=== PATIENT | female | born 1970 | race Caucasian/White ===

== ENCOUNTER 2018-06-12 21:01 | Emergency (ER) | payer MEDICAID, OTHER ==
[~2018-06-12] VITALS: Ht 152.4 cm; Wt 68.9 kg
[~2018-06-12 21:01] MED LIST: BACTDS PO; CEPH500C PO; HYDR-3498 PO; IBUP-1542 PO
[2018-06-12 21:03] VITALS: Ht 152.4 cm; Wt 68.9 kg
[2018-06-13] MEDS ORDERED: LIDOCAINE/MYLANTA 40 ML BTL PO STA (01:46)
[2018-06-13] MEDS ORDERED: FAMOTIDINE 20 MG INJ IV STA (01:46)
[2018-06-13] MEDS ORDERED: BELLADONNA/PHENOBARBITAL TAB PO STA (01:46)
--- NOTE | 2018-06-13 01:54 | ERD ---
ER Documentation Chief Complaint Chief Complaint EPIGASTRIC PAIN X'S 2 DAYS, HX OF GASTRITIS HPI 48-year-old female who presents to the emergency room complaining of epigastric abdominal pain. The pain is worse that is postprandial usually after heavy meals. Today the pain is worse after having [employer]. Patient describes migratory pain to the middle of her back. She denies any fevers or chills. The patient denies any vomiting but has a sour taste in the back of her throat when she has these episodes. No pleuritic pain cough or shortness of breath. No numbness or tingling. ROS All systems reviewed and are negative except as per history of present illness. Medications Home Meds Active Scripts Omeprazole* (Omeprazole*) 20 Mg Capsule.dr, 20 MG PO BID for 30 Days Prov:LISS MOLINA MD 06/13/18 Ibuprofen* (Motrin*) 600 Mg Tab, 600 MG PO Q6H PRN for PAIN AND OR ELEVATED TEMP, #30 TAB Prov:LISS MOLINA MD 06/13/18 Reported Medications Hydrocodone Bit-Acetaminophen* ([place]*) 5-325 Mg Tab, 1 TAB PO DAILY PRN for BREAKTHROUGH PAIN, TAB 02/03/14 Ibuprofen* (Motrin*) 600 Mg Tab, 600 MG PO Q6H PRN for PAIN, TAB 02/03/14 Sulfamethoxazole-Trimethoprim* (Bactrim* DS) 800-160 Mg Tab, 1 TAB PO BID for 7 Days, TAB 02/03/14 Cephalexin* (Cephalexin*) 500 Mg Capsule, 500 MG PO QID for 7 Days, CAP 02/03/14 Allergies Allergies: Coded Allergies: No Known Drug Allergies (Verified Allergy, Mild, 02/01/14) PMhx/Soc History of Surgery: Yes (C/SECTION X1) Anesthesia Reaction: No Hx Neurological Disorder: No Hx Respiratory Disorders: No Hx Cardiac Disorders: No Hx Psychiatric Problems: No Hx Miscellaneous Medical Probl: No Hx Alcohol Use: No Hx Substance Use: No Hx Tobacco Use: No Physical Exam Vitals Vital Signs Date Temp Pulse Resp B/P (MAP) Pulse Ox O2 O2 Flow FiO2 Time Delivery Rate 06/12/18 98.3 94 18 157/72 100 21:03 (100) Physical Exam General: Well developed, well nourished, no acute distress Head: Normocephalic, atraumatic. Eyes: Pupils equally reactive, EOM intact ENT: Moist mucous membranes Neck: Supple, no lymphadenopathy Respiratory: Lungs clear bilaterally, no distress Cardiovascular: RRR, no murmurs, rubs, or gallops Abdominal: Soft, very mild epigastric abdominal tenderness without rebound or guarding, negative Chang sign : Deferred MSK: No edema, no unilateral swelling, 5/5 strength Neurologic: Alert and oriented, moving all extremities, normal speech, no focal weakness, no cerebellar signs Skin: No rash Psych: Normal mood Result Diagram: 06/13/1823106/13/18231 Results 24 hrs Laboratory Tests Test 06/13/18 02:32 White Blood Count 10.6 10^3/ul Red Blood Count 4.29 10^6/ul Hemoglobin 12.6 g/dl Hematocrit 39.0 % Mean Corpuscular Volume 90.9 fl Mean Corpuscular Hemoglobin 29.4 pg Mean Corpuscular Hemoglobin Concent 32.3 g/dl Red Cell Distribution Width 13.2 % Platelet Count 357 10^3/UL Mean Platelet Volume 9.0 fl Immature Granulocytes % 0.300 % Neutrophils % 69.6 % Lymphocytes % 22.0 % Monocytes % 5.7 % Eosinophils % 1.8 % Basophils % 0.6 % Nucleated Red Blood Cells % 0.0 /100WBC Immature Granulocytes # 0.030 10^3/ul Neutrophils # 7.4 10^3/ul Lymphocytes # 2.3 10^3/ul Monocytes # 0.6 10^3/ul Eosinophils # 0.2 10^3/ul Basophils # 0.1 10^3/ul Nucleated Red Blood Cells # 0.0 10^3/ul Sodium Level 140 mmol/L Potassium Level 3.9 mmol/L Chloride Level 106 mmol/L Carbon Dioxide Level 27 mmol/L Anion Gap 7 Blood Urea Nitrogen 10 mg/dl Creatinine 0.50 mg/dl Est Glomerular Filtrat Rate mL/min > 60 mL/min Glucose Level 131 mg/dl Calcium Level 9.8 mg/dl Total Bilirubin 0.3 mg/dl Direct Bilirubin 0.00 mg/dl Indirect Bilirubin 0.3 mg/dl Aspartate Amino Transf (AST/SGOT) 26 IU/L Alanine Aminotransferase (ALT/SGPT) 30 IU/L Alkaline Phosphatase 82 IU/L Total Protein 8.0 g/dl Albumin 4.4 g/dl Globulin 3.60 g/dl Albumin/Globulin Ratio 1.22 Lipase 74 U/L Current Medications Medications Dose Sig/Dev Start Time Status Last (Trade) Ordered Route PRN Stop Time Admin Dose Reason Admin Famotidine 20 mg ONCE STAT 06/13/18 DC 06/13/18 (Pepcid Iv) IV 01:46 06/13/18 02:40 01:47 40 ml ONCE STAT 06/13/18 DC 06/13/18 Miscellaneous PO 01:46 06/13/18 02:40 Medication 01:47 (Gi Cocktail (2)) Belladonna/ 2 tab ONCE STAT 06/13/18 DC 06/13/18 Phenobarbital PO 01:46 06/13/18 02:40 () 01:47 Ketorolac 15 mg ONCE STAT 06/13/18 DC Tromethamine IV 03:11 06/13/18 (Toradol) 03:12 Procedures/MDM EKG, MONITORS, & DIAGNOSTIC IMAGING: Ultrasound gallbladder: IMPRESSION: Multiple gallstones. No wall thickening or pericholecystic fluid to indicate acute inflammation. RPTAT: [facility] LAB INTERPRETATION: I reviewed the laboratory testing and it shows no evidence of acute process MEDICAL DECISION MAKING: Clinical exam consistent with likely dyspepsia, reflux, peptic ulcer disease. The patient has postprandial symptoms usually after fatty meal. Patient will benefit from ultrasound of the gallbladder to rule out biliary colic, low concern for acute cholecystitis. All the patient does have mid back pain, low concern for vascular process. The patient has postprandial symptoms and better alternative diagnosis. Laboratory testing to evaluate for pancreatitis would be reasonable. Patient's blood pressure was elevated (>120/80) but appears stable without ev idence of hypertensive emergency or urgency. The patient was counseled about the risks of hypertension and urged to pursue outpatient monitoring and therapy within a week with their primary care physician. ER COURSE: * GI cocktail provided * Patient with moderate improvement. Toradol provided. Laboratory testing and diagnostic imaging suggestive of possible biliary colic. However clinical exam more consistent with GI process. A trial of NSAIDs and PPI would might be reasonable. The patient should follow-up with GI provider or general surgeon. CONSULTATION: None DISPOSITION PLAN: The patient does not have an identifiable emergent medical condition that warrants inpatient hospitalization at this time. The patient is deemed safe for discharge with outpatient follow-up. We discussed follow up with the patient's primary care doctor within 24 to 48 hours as needed. We also discussed return to the emergency room for worsening symptoms or worsening condition. Outpatient referral: GI, surgery Discharge Medications: Motrin, Prilosec Departure Diagnosis: Primary Impression: Biliary colic Additional Impressions: Dyspepsia Epigastric abdominal pain Condition: Stable LISS MOLINA MD June 13, 2018 01:54
[2018-06-13] MEDS ORDERED: KETOROLAC 15 MG INJ IV STA (03:11)
[2018-06-13] MEDS ORDERED: OMEP20CA16 PO (03:13)
[2018-06-13] MEDS ORDERED: IBUP-1542 PO (03:13)
[2018-06-13 03:30] VITALS: BP 123/61; PULSE 75; RESP 17
[2018-06-13] MEDS ORDERED: FLUT16SP17 NASAL (03:52)
[2018-06-13] MEDS ORDERED: LORA10TA3 PO (03:52)
== END 2018-06-13 03:44 | disposition home or self-care (01) ==
LOC: E/R 21:01
DX: K80.20 Calculus of gallbladder without cholecystitis without obstruction (principal)
CPT/HCPCS: 36415; 76705; 80053; 81025; 83690; 85025; 96374; 96375; J1885; Z7502; Z7610

== ENCOUNTER 2018-07-12 05:19 | Day surgery (SDC) | payer OTHER ==
[2018-07-11 16:48] VITALS: Ht 152.4 cm; Wt 68.0 kg
[2018-07-12] VITALS (13 sets, daily range): BP systolic 99–119; BP diastolic 45–67; PULSE 77–104; RESP 11–25
[~2018-07-12] VITALS: Ht 152.4 cm; Wt 68.0 kg
[~2018-07-12 05:19] MED LIST changes: -BACTDS PO; -CEPH500C PO; +FLUT16SP17 NASAL; -HYDR-3498 PO; +LORA10TA3 PO; +OMEP20CA16 PO
[2018-07-12] MEDS ORDERED: CEFAZOLIN 2 GM/50 ML (PMX) 50 ML IVPB ONE (06:00)
[2018-07-12] MEDS ORDERED: SOD CHLORIDE 0.9% 1,000 ML IV SCH (06:00)
[2018-07-12] MEDS ORDERED: BUPIVACAINE 0.25% (MPF) 30 ML INJ ONE (07:29)
--- NOTE | 2018-07-12 07:41 | PREAC ---
Date/Time of Note Date/Time of Note DATE: 07/12/18 TIME: 07:40 Anesthesia Eval and Record Evaluation Time Pre-Procedure Interview DATE: 07/12/18 TIME: 07:40 Age 48 Sex female NPO: 8 hrs Preoperative diagnosis SYMPTOMATIC CHOLELITHIASIS Planned procedure LAP HORTENSIA Past Medical History Past Medical History: Includes GI: GERD Surgery & Anesthesia Issues No known issue Meds Anticoagulation: No Beta Don within 24 hr: No Reason Beta Don not given: Pt. not on B-Don Discontinued Reported Medications Fluticasone Propionate* (Fluticasone Propionate* Nasal) 50 Mcg/[place] - 16 Gm [place].susp, 1 SPRAY NASAL BID, #1 BOTTLE TO EACH NOSTRIL 06/13/18 Loratadine* (Loratadine*) 10 Mg Tablet, 10 MG PO DAILY, #30 TAB 06/13/18 Discontinued Scripts Omeprazole* (Omeprazole*) 20 Mg Capsule.dr, 20 MG PO BID for 30 Days Prov:LISS MOLINA MD 06/13/18 Ibuprofen* (Motrin*) 600 Mg Tab, 600 MG PO Q6H PRN for PAIN AND OR ELEVATED TEMP, #30 TAB Prov:LISS MOLINA MD 06/13/18 Current Medications Sodium Chloride 1,000 ml @ 75 mls/hr [id number] IV Last administered on 07/12/18at 06:51; Admin Dose 75 MLS/HR; Start 07/12/18 at 06:00; Stop 07/12/18 at 19:19 Meds reviewed: Yes Allergies Coded Allergies: No Known Drug Allergies (Unverified Allergy, Mild, 07/12/18) Allergies Reviewed: Yes Labs/Studies Labs Reviewed: Reviewed by anesthesiologist Result Diagram: 07/12/1851 07/12/18 0551 Laboratory Tests 07/12/18 05:51 test: N/A Pre-procedure Exam Last vitals Vital Signs Date Temp Pulse Resp B/P (MAP) Pulse Ox O2 O2 Flow FiO2 Time Delivery Rate 07/12/18 97.7 77 18 117/67 98 Room Air 06:41 (84) Airway: Adequate mouth opening, Adequate thyromental dist Mallampati: Mallampati II Teeth: Normal Lung: Normal Heart: Normal ASA Physical Status ASA physical status: 1 Emergency: None Planned Anesthetic General/MAC: ETT Nerve block: TAP (bilateral) Planned Pain Management Parenteral pain med Pre-operative Attestations Prior to commencing anesthesia and surgery, the patient was re-evaluated, there was verification of: *The patient's identity *The results of appropriate recent lab work and preoperative vital signs *The above evaluation not changing prior to induction *Anesthetic plan, risk benefits, alternative and complications discussed with patient/family; questions answered; patient/family understands, accepts and wishes to proceed. Brendon Nolan M.D. July 12, 2018 07:41
[2018-07-12] MEDS ORDERED: DIPHENHYDRAMINE 50 MG INJ IV PRN (08:00)
[2018-07-12] MEDS ORDERED: ALBUTEROL 0.083% (NEB) 2.5 MG/3 ML AMP HHN PRN (08:00)
[2018-07-12] MEDS ORDERED: EPHEDrine 25 MG/5 ML SYG IV PRN (08:00)
[2018-07-12] MEDS ORDERED: TRIMETHOBENZAMIDE 100 MG/ML VIAL IM PRN (08:00)
[2018-07-12] MEDS ORDERED: hydrALAzine 20 MG INJ IV PRN (08:00)
[2018-07-12] MEDS ORDERED: MIDAZOLAM 1 MG/ML 2 ML INJ IV PRN (08:00)
[2018-07-12] MEDS ORDERED: OXYCODONE/ACETAMINOPHEN (5/325) TAB PO PRN ×2 (08:00)
[2018-07-12] MEDS ORDERED: MEPERIDINE 25 MG INJ IV PRN (08:00)
[2018-07-12] MEDS ORDERED: FENTAnyl 50 MCG/ML VIAL IV PRN ×3 (08:00)
[2018-07-12] MEDS ORDERED: IPRATROPIUM (NEB) 0.5 MG/2.5 ML AMP HHN PRN (08:00)
[2018-07-12] MEDS ORDERED: HYDROmorphONE 1 MG/5 ML IV SYRINGE IV PRN ×3 (08:00)
[2018-07-12] MEDS ORDERED: LABETALOL HCL 20MG INJ IV PRN (08:00)
[2018-07-12] MEDS ORDERED: ONDANSETRON 4 MG INJ IV PRN (08:00)
--- NOTE | 2018-07-12 09:48 | OPR ---
Date/Time of Note Date/Time of Note DATE: 07/12/18 TIME: 09:44 Operative Report Procedure Date: July 12, 2018 Preoperative Diagnosis symptomatic gallstones and cholecystitis Postoperative Diagnosis same Operation/Procedure Performed laparoscopic cholecystectomy Surgeon see signature line Blowing [place] none Anesthesia Type: general Estimated Blood Loss: 50 - 100 ml's Transfusion none Specimen gallbladder Grafts/Implants none Complications none Pt Condition Post Procedure: stable Indications This is a 48-year-old female with symptomatic gallstones and evidence of cholecystitis. She is brought to the OR for laparoscopic ostectomy. Risks alternatives benefits and personal were discussed the patient. Potential complications including but not limited to bleeding infection intra-abdominal organ injury common bile duct injury and injury to surrounding structures. Patient expressed understanding and consents to the operation. Procedure Description Patient is taken to the OR and prepped and draped in usual sterile fashion. Josue gical time was performed. IV antibiotics were given. Infraumbilical transverse incision was made at the 15 blade. Dissection with cautery skin onto the fascia. The fascia was grasped with [place] is divided with curved masses. 0 Vicryl use this was placed into the fascia. Mckenna trocar was introduced. Pneumoperitoneum is established. Midepigastric 12 mm optical trochars placed under direct visualization. Right upper quadrant upper flank 5 mm optical trochars were placed under direct visualization. Upon initial inspection the gallbladder appeared distended and thickened. The gallbladder was also hydropic. Needle aspiration was used to suction out the fluid contents of the gallbladder. This allowed better grasping and manipulation of the gallbladder. The gallbladder was then grasped the fundus retracted in a lateral cephalad direction. [place] graspers were used to dissect and identify the cystic duct and cystic artery. The critical view was established. Due to its thickened tissue the cystic duct was divided with a 35 mm echelon vessel stapler. Cystic artery was divided to close proximal completion division was performed laparoscopic scissors. The gallbladder was taken off the gallbladder bed. Suction irrigation was used to clean out the area. The gallbladder bed was hemostatic. Additionally Surgicel snow was placed to augment hemostasis. The gallbladder is retrieved Endo Catch bag. All ports were removed under direct visualization. Overdiuresis was tied down to close the infraumbilical fascial incision. Skin was closed and skin ruth. A tap block was provided by the anesthesiologist. Dry dressings were applied. Edelmira MATIAS July 12, 2018 09:48
--- NOTE | 2018-07-12 09:56 | PAC ---
Date/Time of Note Date/Time of Note DATE: 07/12/18 TIME: 09:56 Post-Anesthesia Notes Post-Anesthesia Note Last documented vital signs Vital Signs Date Temp Pulse Resp B/P (MAP) Pulse Ox O2 O2 Flow FiO2 Time Delivery Rate 07/12/18 97.7 77 18 117/67 98 Room Air 06:41 (84) Activity: WNL Respiratory function: WNL Cardiovascular function: WNL Mental status: Baseline Pain reasonably controlled: Yes Hydration appropriate: Yes Nausea/Vomiting absent: Yes Brendon Nolan M.D. July 12, 2018 09:56
[2018-07-12] MEDS ORDERED: HYDROCODONE/APAP (5/325) TAB PO ONE (10:00)
== END 2018-07-12 11:28 | disposition home or self-care (01) ==
LOC: SDS 05:19
PROVIDERS: ATTEND Surgery
DX: K80.10 Calculus of gallbladder with chronic cholecystitis without obstruction (principal)
CPT/HCPCS: 47562; 80053; 85025; 85610; 85730; 88304; J0690; J1170; J2175; J2405; Z7512; Z7610